=== PATIENT | female | born 1945 | race Caucasian/White ===

== ENCOUNTER → 2020-04-13 | Outpatient (CLI) | payer MEDICARE ==
[~2020-04-13] MED LIST: ALBU8.5H2 IH; ALPR.5T PO; ASP325T PO; ASP81TEC PO; ATR20T PO; CALCIUM PO; FLT05NA16 NSEACH; FURO20TA4 PO; HCT25T PO; ISOS30TA74 PO; KCL20TCR PO; LISI20TA PO; LOVA40TA2 PO; LRT10T PO; METO25TA2 PO; MTP25TSR PO; NTR.4SL; OMEP10CA2 PO; OMEP20CA12 PO; PNT40TEC PO; calcium
--- NOTE | 2020-04-13 13:28 | Diagnostic Imaging Report ---
PROCEDURE: MRI lumbar spine without contrast. TECHNIQUE: Multiplanar, multisequence MRI of the lumbar spine was performed without contrast. INDICATION: Low back pain. Left lower extremity pain. COMPARISON: None. FINDINGS: 5 lumbar type vertebral bodies are visualized with the last well-formed disc space designated L5-S1. No acute fracture or dislocation is seen in the lumbar spine. Alignment is anatomic. Vertebral body heights and disc spaces are well-maintained. The bone marrow signal is normal. The conus terminates at the L1 level. No masses are seen associated with the conus or nerve roots of the cauda equina. No epidural collections are identified. No significant degenerative changes are seen in the lumbar spine. No spinal canal or foraminal stenosis is present. Paravertebral soft tissues are unremarkable. Asymmetric atrophy of the left kidney is noted. IMPRESSION: 1. No acute fracture or dislocation in the lumbar spine. 2. No significant degenerative changes are seen in the lumbar spine. No spinal canal or foraminal stenosis. Dictated by: Dictated on workstation # [id number]
== END ==
LOC: RAD 12:22
PROVIDERS: ATTEND Nurse Practitioner
DX: M54.32 Sciatica, left side (principal)
CPT/HCPCS: 72148

== ENCOUNTER → 2020-08-17 | Outpatient (CLI) | payer MEDICARE ==
--- NOTE | 2020-08-17 16:26 | Diagnostic Imaging Report ---
CT Lung Screening INDICATION: 60 pack year smoking history presents for low-dose baseline screening. TECHNIQUE: Noncontrast, low-dose CT imaging performed according to the lung cancer screening protocol. Auto Exposure Controls were utilize during the CT exam to meet ALARA standards for radiation dose reduction. COMPARISON: Baseline FINDINGS: Densely calcified benign granuloma in the right lower lobe present. No noncalcified or suspicious pulmonary nodule. There is no thoracic lymphadenopathy. There is heavy coronary and aortic atherosclerotic vascular calcifications. Aorta nonaneurysmal. There is no effusion or pneumothorax. No findings of pneumonia. No acute appearing chest wall pathology. IMPRESSION: No suspicious mass or acute findings. LUNG-RADS CATEGORY: Category 1 MODIFIER: None OTHER SIGNIFICANT FINDINGS: Aortic and coronary atherosclerotic vascular calcifications. Dictated by: Dictated on workstation # [id number]
== END ==
LOC: RAD 14:11
PROVIDERS: ATTEND Nurse Practitioner Family
DX: J44.9 Chronic obstructive pulmonary disease, unspecified (principal); F17.210 Nicotine dependence, cigarettes, uncomplicated
CPT/HCPCS: 71271